=== PATIENT | female | born 1925 | race Caucasian/White ===

== ENCOUNTER 2017-02-09 11:01 | Inpatient (IN) | payer MEDICARE, BC ==
[2017-02-09] VITALS (8 sets, daily range): BP systolic 97–128; BP diastolic 48–64
[~2017-02-09] VITALS: Ht 157.5 cm; Wt 74.0 kg
[2017-02-09] MEDS ORDERED: TRAVATAN0.0041 OU (11:24)
[2017-02-09] MEDS ORDERED: ELIQUIS5 MG PO (11:24)
[2017-02-09] MEDS ORDERED: PRAVASTATIN20 MG PO (11:25)
[2017-02-09 11:33] LABS: HEMATOCRIT 41.2 % (37.0-47.0); HEMOGLOBIN 13.2 g/dl (12.0-16.0); IMMATURE GRANULOCYTES 0.2 % (0.0-1.0); MEAN CELL VOLUME 94.7 fL CALC (80.0-100.0); MEAN CORPUSCULAR HGB 30.3 pG CALC (26.0-32.0); PLATELET COUNT 221 thou/uL (130-400); RED BLOOD COUNT 4.35 mill/uL (4.20-5.60)
[2017-02-09 11:52] LABS: PROTHROMBIN TIME 10.7 SECONDS (9.0-12.5)
[2017-02-09 11:53] LABS: ALBUMIN 3.9 g/dL (3.2-5.0); ALKALINE PHOSPHATASE 81 u/l (38-126); ANION GAP 16 (6-22 (CALC)); BUN 16 mg/dL (8-23); BUN/CREATININE RATIO 20 (12-20 (CALC)); CARBON DIOXIDE 29 mmol/l (22-30); CHLORIDE 101 mmol/l (95-108); CREATININE 0.8 mg/dL (0.5-1.0); GFR > 60 ML/MIN (>=60 (CALC)); GFR FOR AFR.AMER. > 60 ML/MIN (>=60 (CALC)); GLUCOSE 148 mg/dL (82-115); POTASSIUM 4.1 mmol/l (3.5-5.1); SGOT/AST 25 u/l (9-36); SGPT/ALT 27 u/l (11-66); SODIUM 141 mmol/l (137-146); TOTAL PROTEIN 6.9 g/dL (6.3-8.2)
[2017-02-09 11:58] LABS: MANUAL DIFFERENTIAL YES
[2017-02-09 11:59] LABS: BAND 26 % (0-8)
[2017-02-09 12:04] LABS: MYOGLOBIN 169 ng/mL (0 - 62)
[2017-02-09 12:15] LABS: INFLUENZA A NONE DETECTED (NONE DETECT); INFLUENZA B NONE DETECTED (NONE DETECT)
[2017-02-10] VITALS (7 sets, daily range): BP systolic 111–148; BP diastolic 60–110
[2017-02-10 04:47] LABS: ANION GAP 16 (6-22 (CALC)); BUN 30 mg/dL (8-23); BUN/CREATININE RATIO 32 (12-20 (CALC)); CALCIUM 8.9 mg/dL (8.4-10.2); CARBON DIOXIDE 26 mmol/l (22-30); CHLORIDE 101 mmol/l (95-108); CREATININE 0.9 mg/dL (0.5-1.0); GFR 59 ML/MIN (>=60 (CALC)); GFR FOR AFR.AMER. > 60 ML/MIN (>=60 (CALC)); GLUCOSE 277 mg/dL (82-115); POTASSIUM 4.5 mmol/l (3.5-5.1); SODIUM 138 mmol/l (137-146)
[2017-02-10 05:04] LABS: HEMATOCRIT 34.9 % (37.0-47.0); HEMOGLOBIN 11.6 g/dl (12.0-16.0); IMMATURE GRANULOCYTES 0.2 % (0.0-1.0); MEAN CELL VOLUME 93.1 fL CALC (80.0-100.0); MEAN CORPUSCULAR HGB 30.9 pG CALC (26.0-32.0); MEAN CORPUSCULAR HGB CONC 33.2 g/L CALC (32.0-36.0); NEUT# 4.78 thou/uL (2.00-7.15); RED BLOOD COUNT 3.75 mill/uL (4.20-5.60)
[2017-02-11] VITALS (12 sets, daily range): BP systolic 126–173; BP diastolic 68–96
[2017-02-11 05:37] LABS: HEMATOCRIT 35.7 % (37.0-47.0); HEMOGLOBIN 11.9 g/dl (12.0-16.0); IMMATURE GRANULOCYTES 0.5 % (0.0-1.0); MEAN CELL VOLUME 93.5 fL CALC (80.0-100.0); MEAN CORPUSCULAR HGB 31.2 pG CALC (26.0-32.0); MEAN CORPUSCULAR HGB CONC 33.3 g/L CALC (32.0-36.0); NEUT# 10.82 thou/uL (2.00-7.15); RED BLOOD COUNT 3.82 mill/uL (4.20-5.60); RED CELL DISTRI WIDTH 12.9 % (11.5-15.5)
[2017-02-11 05:49] LABS: ANION GAP 15 (6-22 (CALC)); BUN 37 mg/dL (8-23); BUN/CREATININE RATIO 40 (12-20 (CALC)); CALCIUM 9.3 mg/dL (8.4-10.2); CARBON DIOXIDE 27 mmol/l (22-30); CHLORIDE 104 mmol/l (95-108); CREATININE 0.9 mg/dL (0.5-1.0); GFR 59 ML/MIN (>=60 (CALC)); GFR FOR AFR.AMER. > 60 ML/MIN (>=60 (CALC)); GLUCOSE 168 mg/dL (82-115); POTASSIUM 4.7 mmol/l (3.5-5.1); SODIUM 141 mmol/l (137-146)
[2017-02-12] VITALS (8 sets, daily range): BP systolic 140–151; BP diastolic 66–83
[2017-02-12 06:45] LABS: ANION GAP 14 (6-22 (CALC)); BUN 33 mg/dL (8-23); BUN/CREATININE RATIO 39 (12-20 (CALC)); CARBON DIOXIDE 26 mmol/l (22-30); CHLORIDE 105 mmol/l (95-108); CREATININE 0.8 mg/dL (0.5-1.0); GFR > 60 ML/MIN (>=60 (CALC)); GFR FOR AFR.AMER. > 60 ML/MIN (>=60 (CALC)); GLUCOSE 185 mg/dL (82-115); POTASSIUM 4.5 mmol/l (3.5-5.1); SODIUM 141 mmol/l (137-146)
[2017-02-12 06:59] LABS: HEMOGLOBIN 12.1 g/dl (12.0-16.0); IMMATURE GRANULOCYTES 1.9 % (0.0-1.0); MEAN CELL VOLUME 94.1 fL CALC (80.0-100.0); MEAN CORPUSCULAR HGB 30.8 pG CALC (26.0-32.0); MEAN CORPUSCULAR HGB CONC 32.7 g/L CALC (32.0-36.0); NEUT# 9.32 thou/uL (2.00-7.15); RED BLOOD COUNT 3.93 mill/uL (4.20-5.60); RED CELL DISTRI WIDTH 12.9 % (11.5-15.5)
[2017-02-12] MEDS ORDERED: ROBITUSSIN200 MG/10 PO (09:31)
[2017-02-12] MEDS ORDERED: PREDNISONE10 MG PO (09:31)
[2017-02-12] MEDS ORDERED: LOPRESSOR25 MG PO (09:31)
[2017-02-12] MEDS ORDERED: IPRATROPIU0.5 MG/3 M IN (09:31)
[2017-02-12] MEDS ORDERED: ELIQUIS2.5 MG PO (09:31)
[2017-02-12] MEDS ORDERED: DOXYCYCL HYC100 MG PO (09:32)
[2017-02-12] MEDS ORDERED: NEBULIZER COMPRESSOR (09:34)
== END 2017-02-12 17:30 | disposition home or self-care (01) | DRG 310 ==
LOC: ENPENDDIS → ED 11:01 → ED-I 12:45 → ED 13:11 → ICU 13:12
PROVIDERS: Emergency Medicine; Internal Medicine; ADMIT Internal Medicine; ATTEND Internal Medicine
DX: I48.0 Paroxysmal atrial fibrillation (principal); J20.9 Acute bronchitis, unspecified; Z79.01 Long term (current) use of anticoagulants; Z86.718 Personal history of other venous thrombosis and embolism; Z86.711 Personal history of pulmonary embolism; Z86.73 Personal history of transient ischemic attack (TIA), and cerebral infarction without residual deficits